=== PATIENT | female | born 1990 | race Caucasian/White ===

== ENCOUNTER 2016-09-23 06:16 | Emergency (ER) | payer BC, OTHER ==
[~2016-09-23] VITALS: Ht 167.6 cm; Wt 92.1 kg
[2016-09-23 06:20] VITALS: TEMP 36.7; Ht 167.6 cm; Wt 92.1 kg
--- NOTE | 2016-09-23 06:54 | EMERGENCY ROOM VISIT NOTE ---
History Report prepared by Kadeem: Bran Bazan Under the Supervision of: Dr. Watson Camargo M.D. First contact with patient: 06:45 Chief Complaint: THROAT PAIN/INJURY Stated Complaint: SWOLLEN GLANDS,EAR PAIN,POSSIBLE THROAT BLOCKAGE History of Present Illness The patient is a 25 year old female who presents to the Emergency Room with complaints of persistent swollen lymph nodes that started 2 days ago. The patient notes that the pain in her glands radiated up to both of her ears last night. She describes that discomfort in her ears as sharp discomfort, but this has resolved since she took an Ibuprofen about 7 hours ago. The patient also complains of a sore throat describing the sensation as feeling like her throat is swollen. The discomfort is worsened by swallowing. She denies fevers, chills , or a history of strep throat. Source of History: patient Onset: 2 days ago Position: neck Timing: other (persistent) Modifying Factors (Worsening): other (swallowing) Associated Symptoms: + sorethroat, No chills, No fevers Note: Other associated symptoms: ear pain Review of Systems All systems have been listed, reviewed, and are negative other than those previously mentioned. Please see Additional Medical History Sheet. Past Medical & Surgical Medical Problems: (1) Scoliosis Surgical Problems: (1) History of removal of ovarian cyst Family History FH: diabetes mellitus Social History Smoking Status: Never Smoker Alcohol Use: none Marital Status: in relationship Housing Status: lives with significant other Occupation Status: employed Current/Historical Medications No Active Prescriptions or Reported Meds Allergies Coded Allergies: No Known Allergies (Unverified , 09/23/16) Physical Exam Vital Signs Date Time Temp Pulse Resp B/P Pulse Ox O2 Delivery O2 Flow Rate FiO2 09/23/16 08:06 84 18 109/58 96 Room Air 09/23/16 06:20 99 Room Air 09/23/16 06:20 36.7 86 18 118/79 99 Room Air Physical Exam GENERAL: Patient awake, alert, oriented x 3. Patient follows commands. Patient does not appear toxic. Patient is adequately hydrated and well- nourished. Patient appears to be in mild to moderate distress. SKIN: No erythema, pallor, cyanosis or rash HEENT: Normal head, pupils equal, reactive to light and accommodation. Ears normal. Oral cavity and posterior pharynx appear normal. No significant erythema of posterior pharynx. Neck: Patient has bilateral tender submandibular adenopathy, no neck vein distention. LUNGS: Clear to auscultation. No wheezes, no rales, no rhonchi. HEART: No murmurs. No gallops. No rubs ABDOMEN: No masses, no rebound, no hepatomegaly or splenomegaly. EXTREMITIES: No signs of trauma. No pedal or pretibial edema. No calf or thigh tenderness. NEUROLOGIC: Cranial nerves II-XII within normal limits. No gross motor sensory function deficits. Medical Decision & Procedures Laboratory Results 09/23/16 07:16 Red Blood Count 4.52, Mean Corpuscular Volume 87.8, Mean Corpuscular Hemoglobin 29.4, Mean Corpuscular Hemoglobin Concent 33.5, Mean Platelet Volume 10.6, Neutrophils (%) (Auto) 64.8, Lymphocytes (%) (Auto) 23.0, Monocytes (%) (Auto) 8.8, Eosinophils (%) (Auto) 2.9, Basophils (%) (Auto) 0.3, Neutrophils # (Auto) 6.44, Lymphocytes # (Auto) 2.29, Monocytes # (Auto) 0.87, Eosinophils # (Auto) 0.29, Basophils # (Auto) 0.03 Test 09/23/16 07:16 White Blood Count 9.94 K/uL (4.8-10.8) Red Blood Count 4.52 M/uL (4.2-5.4) Hemoglobin 13.3 g/dL (12.0-16.0) Hematocrit 39.7 % (37-47) Mean Corpuscular Volume 87.8 fL (80-100) Mean Corpuscular Hemoglobin 29.4 pg (25-34) Mean Corpuscular Hemoglobin Concent 33.5 g/dl (32-36) Platelet Count 283 K/uL (130-400) Mean Platelet Volume 10.6 fL (7.4-10.4) Neutrophils (%) (Auto) 64.8 % Lymphocytes (%) (Auto) 23.0 % Monocytes (%) (Auto) 8.8 % Eosinophils (%) (Auto) 2.9 % Basophils (%) (Auto) 0.3 % Neutrophils # (Auto) 6.44 K/uL (1.4-6.5) Lymphocytes # (Auto) 2.29 K/uL (1.2-3.4) Monocytes # (Auto) 0.87 K/uL (0.11-0.59) Eosinophils # (Auto) 0.29 K/uL (0-0.5) Basophils # (Auto) 0.03 K/uL (0-0.2) RDW Standard Deviation 42.3 fL (36.4-46.3) RDW Coefficient of Variation 13.2 % (11.5-14.5) Immature Granulocyte % (Auto) 0.2 % Immature Granulocyte # (Auto) 0.02 K/uL (0.00-0.02) Monoscreen NEG (NEG) Laboratory results as stated above per my review. ED Course 0645: Past medical records reviewed. The patient was evaluated in room B2. A complete history and physical examination was performed. 0815: Upon reevaluation, the patient appeared to have improvement of her symptoms. I discussed today's findings with her. She verbalized agreement of the treatment plan. The patient was discharged home. Medical Decision Differential diagnoses include strep pharyngitis, mononucleosis, eustachian tube dysfunction, and other viral infections. 25-year-old female with throat and ear pain. The patient has bilateral submandibular adenopathy. Strep test is negative. Monospot is negative. Throat culture is pending. The patient most likely has a viral cause her symptoms. She will be treated symptomatically. Patient was encouraged to use Sudafed for eustachian tube dysfunction. She is to take ibuprofen for pain. Impression Primary Impression: Upper respiratory infection Additional Impression: Eustachian tube dysfunction Scribe Attestation The scribe's documentation has been prepared under my direction and personally reviewed by me in its entirety. I confirm that the note above accurately reflects all work, treatment, procedures, and medical decision making performed by me. Departure Information Dispostion Home / Self-Care Prescriptions No Active Prescriptions or Reported Meds Referrals No Doctor, Assigned (PCP) Patient Instructions A Signature Page, Common Cold - [facility], [facility] Additional Instructions 60 mg of pseudoephedrine every 6 hours as needed for ear pain. 600 mg ibuprofen every 6 hours as needed for pain. Drink extra fluids. Problem Qualifiers
[2016-09-23 07:35] LABS: BASO % 0.3 %; BASO ABS # 0.03 K/uL (0-0.2); COMPLETE YES; EOS % 2.9 %; HEMATOCRIT 39.7 % (37-47); IG% 0.2 %; LYMPH ABS # 2.29 K/uL (1.2-3.4); MEAN CELL VOLUME 87.8 fL (80-100); MEAN CORPUSCULAR HEMOGLOBIN 29.4 pg (25-34); MEAN CORPUSCULAR HGB CONC 33.5 g/dl (32-36); MEAN PLATELET VOLUME 10.6 fL (7.4-10.4); MONO % 8.8 %; NEUT % 64.8 %; PLATELET COUNT 283 K/uL (130-400); RED BLOOD COUNT 4.52 M/uL (4.2-5.4); WHITE BLOOD COUNT 9.94 K/uL (4.8-10.8)
[2016-09-23 08:06] VITALS: BP 109/58; PULSE 84; O2SAT 96
== END 2016-09-23 08:51 | disposition home or self-care (01) ==
LOC: C.EDB 06:18
DX: J06.9 Acute upper respiratory infection, unspecified (principal); H69.90 Unspecified Eustachian tube disorder, unspecified ear